=== PATIENT | male | born 1945 | race Caucasian/White ===

== ENCOUNTER → 2023-10-03 07:43 | Outpatient (CLI) | payer MEDICARE, SELFPAY ==
--- NOTE | 2023-10-03 07:45 | DI.RAD.S_ITS ---
PROCEDURE: XR CHEST 2V INDICATIONS: Cough TECHNIQUE: 2 views of the chest were acquired. COMPARISON: None. FINDINGS: Surgical changes and devices: None. Lungs and pleura: Lungs are clear. No pleural effusions or pneumothorax. Mediastinum: Mediastinal contours are normal except for a large hiatal hernia behind the heart containing air-fluid level. Heart size is normal. Bones and chest wall: No suspicious bony abnormalities. Soft tissues appear unremarkable. IMPRESSION: No acute cardiopulmonary abnormality is seen. Large hiatal hernia behind the heart, containing air-fluid level. This can predispose to reflux and recurrent aspiration. Please correlate clinically. Dictated by: Danis Santiago M.D. on 10/03/2023 at 10:12 Approved by: Danis Santiago M.D. on 10/03/2023 at 10:12
== END ==
PROVIDERS: Referring Provider Nurse Practitioner Family; Visit Provider Nurse Practitioner Family
DX: K44.9 Diaphragmatic hernia without obstruction or gangrene (principal); R05.9 Cough, unspecified
CPT/HCPCS: 71046

== ENCOUNTER 2024-03-31 11:30 | Emergency (ER) | payer MEDICARE, SELFPAY ==
[2024-03-31] VITALS (14 sets, daily range): BP systolic 110–163; BP diastolic 78–90; PULSE 64–79; RESP 16–33; TEMP 36.3–36.8; O2SAT 90–98; BMI 27.1
--- NOTE | 2024-03-31 11:57 | DI.CT.S_ITS ---
PROCEDURE: CT HEAD/BRAIN WO CON INDICATIONS: vertigo since last wed, vision changes, sent by optho TECHNIQUE: Noncontrast 4.5 mm thick angled axial sections acquired from the foramen magnum to the vertex, with coronal and sagittal reformats. For radiation dose reduction, the following was used: automated exposure control, adjustment of mA and/or kV according to patient size. COMPARISON: [facility], CT, CT ANGIO HEAD AND NECK, 03/31/2024, 12:15. FINDINGS: Image quality: Diagnostic. CSF spaces: Basal cisterns are patent. No extra-axial fluid collections. The ventricles are symmetric in size and shape. Brain: No intracranial bleeds or masses. There is cerebral volume loss for age, with resultant ventricular and sulcal prominence. There are periventricular and deep white matter chronic small vessel ischemic changes. There is intracranial internal carotid artery atherosclerosis. Skull and face: Calvarium and visualized facial bones appear intact, without suspicious lesions. Sinuses: Visualized sinuses and mastoids are clear. IMPRESSION: No acute intracranial pathology. Comment: If clinically suspect acute stroke, recommend brain MRI. Dictated by: Wild Tillman M.D. on 03/31/2024 at 12:38 Approved by: Wild Tillman M.D. on 03/31/2024 at 12:39
--- NOTE | 2024-03-31 11:57 | DI.CT.S_ITS ---
PROCEDURE: CT ANGIO HEAD AND NECK INDICATIONS: vertigo since last wed, vision changes, sent by optho TECHNIQUE: After the administration of intravenous contrast, 1 mm thick sections acquired from the aortic arch through the [place] of [place]. 3-dimensional icjugpv-ywldgouoo-akxbnwkexn (MIP) and/or volume rendering reformats were acquired of the central intracranial vasculature and neck separately. For radiation dose reduction, the following was used: automated exposure control, adjustment of mA and/or kV according to patient size. COMPARISON: [facility], CT, CT HEAD/BRAIN WO CON, 03/31/2024, 12:15. FINDINGS: Image quality: Diagnostic. BRAIN: CSF spaces: Ventricles are normal in size and shape. Basal cisterns are patent. No extra-axial fluid collections. Brain: No significant abnormality of the brain can be seen. Skull and face: Calvarium and facial bones appear intact, without suspicious lesions. Orbits appear normal. Sinuses: Sinuses and mastoids are clear. HEAD CT ANGIOGRAPHY: Anterior circulation: Intracranial internal carotid arteries are normal in size and flow. The flow within the paired anterior cerebral arteries is normal and symmetric. The flow within the middle cerebral arteries is normal and symmetric. The anterior communicating artery is seen. No aneurysms are seen. Posterior circulation: Visualized portions of the vertebral arteries demonstrate normal caliber, and join to form a normal appearing basilar artery. Flow within the posterior cerebral arteries is normal and symmetric. No aneurysms are seen. NECK CT ANGIOGRAPHY: Carotid system: The great vessels demonstrate a conventional anatomy as they arise from the aortic arch. At its origin, there is a xzan-te-rgrjuayi stenosis--less than or equal to 50%-- of the left common carotid artery secondary to soft plaque. This is best appreciated on axial image 325 of series 3. Brachiocephalic artery is widely patent. The left subclavian has a mild origin stenosis. The common carotid arteries otherwise demonstrate normal caliber and courses. The bifurcation regions are both widely patent. The internal carotid arteries demonstrate normal calibers and courses. Posterior circulation: The origins of the vertebral arteries both appear widely patent. The more superior extracranial portions of both vertebral arteries also demonstrate normal courses and calibers. They join to form a normal appearing basilar artery. Soft tissues: Visualized neck soft tissues demonstrate no suspicious abnormalities. Bones: No suspicious bony lesions. Visualized cervical spine appears normally aligned. IMPRESSION: No significant intracranial arterial abnormality is seen. No carotid or vertebral artery dissection. 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 Any quantitative measurements of stenosis were performed using NASCET criteria. Dictated by: Wild Tillman M.D. on 03/31/2024 at 12:32 Approved by: Wild Tillman M.D. on 03/31/2024 at 12:38
--- NOTE | 2024-03-31 11:58 | PC.NURSE ---
pt reports that he was sent to ER for evaluation of stroke. Says that he did some exercises for vertigo and it improved slightly.
--- NOTE | 2024-03-31 12:12 | EKG_ITS ---
[address] [address] Test Date: 2024-03-31 Pat Name: Brennan Salinas Department: [facility] Room: Gender: Male [employer]: ANA : 1945 Requested By: Order Number: [id number] Reading MD: Dimitris Mancia Measurements Intervals [place] Rate: 69 P: 20 FL: 208 QRS: -28 QRSD: 102 T: 24 QT: 398 QTc: 426 Interpretive Statements Normal sinus rhythm Inferior infarct , age undetermined Electronically Signed On 04-02-2024 23:44:22 PST by Dimitris Mancia
[2024-03-31 12:16] LABS: Add Manual Diff / Slide Review NO; Basophils Absolute Auto 100 /uL (0-100); Basophils Percent Auto 1.1 % (0-2); Eosinophils Absolute Auto 100 /uL (0-450); Eosinophils Percent Auto 1.9 % (2-4); Hematocrit 44.9 % (41-53); Hemoglobin 15.3 g/dL (13.5-17.5); Lymphocytes Absolute Auto 1100 /uL (1100-4500); Lymphocytes Percent Auto 19.1 % (25-40); Mean Corpuscular Hemoglobin 29.6 PG (26-34); Monocytes Absolute Auto 400 /uL (0-900); Monocytes Percent Auto 7.8 % (3-14); Neutrophils Absolute Auto 4100 /uL (1500-7000); Neutrophils Percent Auto 70.1 % (50-75); Platelet Count 281 X10^3/uL (150-400); Red Blood Cell Count 5.16 X10^6/uL (4.5-5.9); Red Cell Distribution Width 12.7 % (11.6-14.8); White Blood Cell Count 5.8 X10^3/uL (4.5-11.0)
[2024-03-31 12:21] LABS: INR 1.1 (0.9-1.3); Prothrombin Time 12.9 SECONDS (9.4-12.5)
[2024-03-31 12:23] LABS: PTT Partial Thromboplastin Tim 35 SECONDS (25.1-36.5)
[2024-03-31 12:23] LABS: Ur Creatinine Normal (Normal); Ur Specific Gravity Normal (Normal); Urine pH Normal (Normal)
[2024-03-31 12:24] LABS: Urine Amphetamines Negative (Negative); Urine Barbiturates Negative (Negative); Urine Benzodiazepines Negative (Negative); Urine Cocaine Negative (Negative); Urine MDMA Negative (Negative); Urine Methadone Negative (Negative); Urine Methamphetamines Negative (Negative); Urine Opiates Negative (Negative); Urine Oxycodone Negative (Negative); Urine Phencyclidine Negative (Negative); Urine THC Negative (Negative); Urine Tricyclic Antidepressant Negative (Negative)
[2024-03-31 12:28] LABS: Alanine Aminotransferase 26 IU/L (<50); Albumin 4.1 g/dL (3.5-5.0); Albumin Globulin Ratio 1.4 (1.0-2.8); Alkaline Phosphatase 73 U/L (38-126); Aspartate Aminotransferase 29 IU/L (17-59); BUN Creatinine Ratio 23.1 (6-22); Bilirubin Total 0.6 mg/dL (0.2-1.3); Blood Urea Nitrogen 21 mg/dL (9-20); Calcium 8.8 mg/dL (8.4-10.2); Carbon Dioxide 23 mmol/L (22-32); Chloride 108 mmol/L (98-107); Estimated Glomerular Filt Rate > 60 mL/min (>60); Ethanol (ETOH) < 10 mg/dL; Globulin 2.9 g/dL (1.7-4.1); Glucose 99 mg/dL (80-110); HEMOLYSIS 18 (0-50); Potassium 4.2 mmol/L (3.4-5.1); Sodium 136 mmol/L (137-145)
--- NOTE | 2024-03-31 14:34 | ED.NEUROSD ---
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 Patient states Sunday he had a great curtain, over his eye. States he saw the community specialist today who told him they did not find any major changes to his eye he was had a similar episode of amaurosis fugax about 2 years ago which prompted his physician to start him on a statin. Patient states he talked with his primary care today or got a call back based on his symptoms they told him to come to the ER to be evaluated for stroke. He has not had any persistent vision changes, no headache, no speech changes no facial droop, new numbness, tingling or weakness no movement of his extremities. Patient denies any nausea or vomiting. No issues with bowel movements no urinary issues. Patient states statins is only daily medications was recommended to take an aspirin daily by his physician but does not. Has had bilateral knee surgery. No known drug allergies. No tobacco, occasional alcohol, no recreational drugs. Patient notes he was pretty active engaged in a lot of sports including skiing, hiking and exercises regularly. On Anticoagulants: No Related Data Home Medications Medication Instructions Recorded Confirmed rosuvastatin 5 mg tablet 5 mg PO DAILY 10/03/23 10/03/23 Previous Rx's Medication Instructions Recorded meclizine 25 mg tablet 25 mg PO BID PRN dizziness #20 tabs 03/27/24 Allergies Allergy/AdvReac Type Severity Reaction Status Date / Time No Known Drug Allergies Allergy Unverified 03/27/24 15:14 Review of Systems Review of Systems ROS Unobtainable: All systems reviewed & are unremarkable except as noted in HPI and below Hematologic/Lymphatic On Anticoagulants: No Patient History Social History Smoking Status: Never smoker Smoking Status: Never smoker Exam Narrative Exam Narrative: GEN: well nourished, well appearing male, alert and oriented x 3, patient appears to be in mild distress. HEENT: Atraumatic, pupils are dilated, round patient did have a dilated eye exam earlier today, extraocular movements are intact, nares are clear, TMs are clear with no fluid, there is no conjunctival pallor. Throat is clear without any exudates, erythema, tonsillar enlargement or uvular deviation, no facial droop HEART: Regular rate and rhythm without murmur, clicks, rubs. LUNGS:Lungs clear to auscultation, no wheezes, rales, crackles, chest moves symmetrically ABD:bowel sounds normal, soft, non-tender, no guarding, rebound, rigidity, no masses noted, no hepatosplenomegaly MSCL: Non-tender, no muscle atrophy, muscles strength 5/5 upper and lower extremities, full range of motion, normal gait NEURO:CN 2-12 intact, sensation normal, finger nose finger test normal, heel garcia test normal Initial Vital Signs Initial Vital Signs: Vital Signs Pulse Rate 74 03/31/24 11:41 Pulse Oximetry 96 03/31/24 11:41 Scores NIH Stroke Scale Level of Conciousness: Alert, keenly responsive Ask month/age: Answers both questions correctly. Open/close eyes, close hand: Performs both tasks correctly Best gaze horizontal: Normal Visual oquendo: No visual loss Facial palsy: Normal symetrical movement Left arm drift: No drift for full 10 sec Right arm drift: No drift for full 10 sec Left leg drift: No drift for full 5 sec Right leg drift: No drift for full 5 sec Limb ataxia: Absent Sensory on face/arms/legs: Normal, no sensory loss Best language: No aphasia, normal Dysarthria: Normal Extinction or inattention: No abnormality Total NIH Stroke scale score: 0 Course Orders Ordered: ED Orders 03/31/24 11:57 CT angio head and neck Stat CT head/brain wo con Stat EKG-12 Lead Stat 03/31/24 12:05 Complete Blood Count AUTO DIFF Stat Comprehensive Metabolic Panel Stat Ethanol (ETOH) Stat PTT Partial Thromboplastin Tony Stat Prothrombin Time INR Stat 03/31/24 12:10 Urine Drug Screen, Rapid Stat 03/31/24 15:04 MR head/brain wo con Stat Discontinued Medications Aspirin (Aspirin 81 Mg Chew Tab) 324 mg PO NOW ONE Stop: 03/31/24 15:02 Last Admin: 03/31/24 15:42 Dose: 324 mg Documented By: Vital Signs Vital signs: Vital Signs - 8 hr 03/31/24 11:41 03/31/24 11:44 03/31/24 11:46 Temperature 97.6 F 97.4 F L Pulse Rate 74 79 65 Respiratory Rate 18 18 Blood Pressure 163/87 H 145/78 H Pulse Oximetry 96 98 98 Oxygen Delivery Method Room Air Room Air 03/31/24 12:00 03/31/24 12:00 03/31/24 12:24 Temperature Pulse Rate 64 Respiratory Rate Blood Pressure 115/79 147/83 H Pulse Oximetry 93 Oxygen Delivery Method 03/31/24 12:24 03/31/24 12:30 03/31/24 12:30 Temperature Pulse Rate 67 67 Respiratory Rate 25 H 22 Blood Pressure 122/80 Pulse Oximetry 96 96 Oxygen Delivery Method Room Air 03/31/24 13:00 03/31/24 13:00 03/31/24 13:30 Temperature Pulse Rate 68 Respiratory Rate 24 Blood Pressure 123/84 118/78 Pulse Oximetry 96 Oxygen Delivery Method 03/31/24 13:30 03/31/24 14:00 03/31/24 14:01 Temperature Pulse Rate 66 67 67 Respiratory Rate 20 17 20 Blood Pressure Pulse Oximetry 95 96 96 Oxygen Delivery Method Room Air 03/31/24 14:01 03/31/24 14:30 03/31/24 14:30 Temperature Pulse Rate 66 Respiratory Rate 23 Blood Pressure 110/81 120/80 Pulse Oximetry 96 Oxygen Delivery Method 03/31/24 15:39 03/31/24 15:40 03/31/24 15:40 Temperature Pulse Rate 72 71 Respiratory Rate 33 H Blood Pressure 128/90 Pulse Oximetry 90 L 95 Oxygen Delivery Method 03/31/24 16:08 Temperature 98.2 F Pulse Rate 66 Respiratory Rate 16 Blood Pressure 115/78 Pulse Oximetry 98 Oxygen Delivery Method Room Air MDM - Neuro Symptoms/Deficit Lab Data 03/31/24 12:05 03/31/24 12:05 Labs: Lab Results 03/31/24 03/31/24 Range/Units 12:05 12:10 WBC 5.8 (4.5-11.0) X10^3/uL RBC 5.16 (4.5-5.9) X10^6/uL Hgb 15.3 (13.5-17.5) g/dL Hct 44.9 (41-53) % MCV 87.0 (80-100) fL MCH 29.6 (26-34) PG MCHC 34.0 (30-36) % RDW 12.7 (11.6-14.8) % Plt Count 281 (150-400) X10^3/uL Neut % (Auto) 70.1 (50-75) % Lymph % (Auto) 19.1 L (25-40) % [place] % (Auto) 7.8 (3-14) % Eos % (Auto) 1.9 L (2-4) % Baso % (Auto) 1.1 (0-2) % Neut # (Auto) 4100 (4281-5373) /uL Lymph # (Auto) 1100 (9215-5880) /uL [place] # (Auto) 400 (0-900) /uL Eos # (Auto) 100 (0-450) /uL Baso # (Auto) 100 (0-100) /uL PT 12.9 H (9.4-12.5) SECONDS INR 1.1 (0.9-1.3) APTT 35 (25.1-36.5) SECONDS Sodium 136 L (137-145) mmol/L Potassium 4.2 (3.4-5.1) mmol/L Chloride 108 H (98-107) mmol/L Carbon Dioxide 23 (22-32) mmol/L BUN 21 H (9-20) mg/dL Creatinine 0.91 (0.66-1.25) mg/dL Estimated GFR > 60 (>60) mL/min BUN/Creatinine Ratio 23.1 H (6-22) Glucose 99 (80-110) mg/dL Calcium 8.8 (8.4-10.2) mg/dL Total Bilirubin 0.6 (0.2-1.3) mg/dL AST 29 (17-59) IU/L ALT 26 (<50) IU/L Alkaline Phosphatase 73 (38-126) U/L Total Protein 7.0 (6.3-8.2) g/dL Albumin 4.1 (3.5-5.0) g/dL Globulin 2.9 (1.7-4.1) g/dL Albumin/Globulin Ratio 1.4 (1.0-2.8) U Opiates 300ng/mL cut Negative (Negative) Ur Oxycodone Screen Negative (Negative) Urine Methadone Screen Negative (Negative) Ur Barbiturates Screen Negative (Negative) U Tricyclic Antidepress Negative (Negative) Ur Phencyclidine Scrn Negative (Negative) Ur Amphetamines Screen Negative (Negative) U Methamphetamines Scrn Negative (Negative) Ur MDMA Scrn (Ecstasy) Negative (Negative) U Benzodiazepines Scrn Negative (Negative) Urine Cocaine Screen Negative (Negative) U Marijuana (THC) Screen Negative (Negative) Urine pH Normal (Normal) Urine Specific [place] Normal (Normal) Ethyl Alcohol < 10 ( - 10) mg/dL Ur Creatinine Normal (Normal) Imaging Data CT scan - head: Radiologist's Impression: Close Head/Neck CTA (Signed) Wild Tillman - 03/31/[address] (Signed) Wild Tillman - 03/31/24 Chest X-Ray (Signed) Danis Santiago - 10/03/23 Launch?[place] [address] CT Scan Report Signed Patient: Brennan Salinas MR#: [id number] : 1945 Acct:[id number] Age/Sex: 78 / M Date of Service: 03/31/24 Loc: ED Accession Number: [id number] Procedure: CT head/brain wo con Ordering Provider: Rita Rudolph D.O. PROCEDURE: CT HEAD/BRAIN WO CON INDICATIONS: vertigo since last sun, vision changes, sent by optho TECHNIQUE: Noncontrast 4.5 mm thick angled axial sections acquired from the foramen magnum to the vertex, with coronal and sagittal reformats. For radiation dose reduction, the following was used: automated exposure control, adjustment of mA and/or kV according to patient size. COMPARISON: [facility], CT, CT ANGIO HEAD AND NECK, 03/31/2024, 12:15. FINDINGS: Image quality: Diagnostic. CSF spaces: Basal cisterns are patent. No extra-axial fluid collections. The ventricles are symmetric in size and shape. Brain: No intracranial bleeds or masses. There is cerebral volume loss for age, with resultant ventricular and sulcal prominence. There are periventricular and deep white matter chronic small vessel ischemic changes. There is intracranial internal carotid artery atherosclerosis. Skull and face: Calvarium and visualized facial bones appear intact, without suspicious lesions. Sinuses: Visualized sinuses and mastoids are clear. IMPRESSION: No acute intracranial pathology. Comment: If clinically suspect acute stroke, recommend brain MRI. Dictated by: Wild Tillman M.D. on 03/31/2024 at 12:38 Approved by: Wild Tillman M.D. on 03/31/2024 at 12:39 CTA - brain/neck: Radiologist's Impression: Brennan Salinas??78??M??1945 ? Allergy/Adv: No Known Drug Allergies Close Head/Neck CTA (Signed) Wild Tillman - 03/31/[address] (Signed) Wild Tillman - 03/31/24 Chest X-Ray (Signed) Danis Santiago - 10/03/23 [facility]?[place] [address] CT Scan Report Signed Patient: Brennan Salinas MR#: [id number] : 1945 Acct:[id number] Age/Sex: 78 / M Date of Service: 03/31/24 Loc: ED Accession Number: [id number] Procedure: CT angio head and neck Ordering Provider: Rita Rudolph D.O. PROCEDURE: CT ANGIO HEAD AND NECK INDICATIONS: vertigo since last sun, vision changes, sent by optho TECHNIQUE: After the administration of intravenous contrast, 1 mm thick sections acquired from the aortic arch through the [place] of [place]. 3-dimensional aymuger-izdryzazi-zbdbdnhvgi (MIP) and/or volume rendering reformats were acquired of the central intracranial vasculature and neck separately. For radiation dose reduction, the following was used: automated exposure control, adjustment of mA and/or kV according to patient size. COMPARISON: [facility], CT, CT HEAD/BRAIN WO CON, 03/31/2024, 12:15. FINDINGS: Image quality: Diagnostic. BRAIN: CSF spaces: Ventricles are normal in size and shape. Basal cisterns are patent. No extra-axial fluid collections. Brain: No significant abnormality of the brain can be seen. Skull and face: Calvarium and facial bones appear intact, without suspicious lesions. Orbits appear normal. Sinuses: Sinuses and mastoids are clear. HEAD CT ANGIOGRAPHY: Anterior circulation: Intracranial internal carotid arteries are normal in size and flow. The flow within the paired anterior cerebral arteries is normal and symmetric. The flow within the middle cerebral arteries is normal and symmetric. The anterior communicating artery is seen. No aneurysms are seen. Posterior circulation: Visualized portions of the vertebral arteries demonstrate normal caliber, and join to form a normal appearing basilar artery. Flow within the posterior cerebral arteries is normal and symmetric. No aneurysms are seen. NECK CT ANGIOGRAPHY: Carotid system: The great vessels demonstrate a conventional anatomy as they arise from the aortic arch. At its origin, there is a htys-rz-gtixoxow stenosis--less than or equal to 50%-- of the left common carotid artery secondary to soft plaque. This is best appreciated on axial image 325 of series 3. Brachiocephalic artery is widely patent. The left subclavian has a mild origin stenosis. The common carotid arteries otherwise demonstrate normal caliber and courses. The bifurcation regions are both widely patent. The internal carotid arteries demonstrate normal calibers and courses. Posterior circulation: The origins of the vertebral arteries both appear widely patent. The more superior extracranial portions of both vertebral arteries also demonstrate normal courses and calibers. They join to form a normal appearing basilar artery. Soft tissues: Visualized neck soft tissues demonstrate no suspicious abnormalities. Bones: No suspicious bony lesions. Visualized cervical spine appears normally aligned. IMPRESSION: No significant intracranial arterial abnormality is seen. No carotid or vertebral artery dissection. 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 Any quantitative measurements of stenosis were performed using NASCET criteria. Dictated by: Wild Tillman M.D. on 03/31/2024 at 12:32 Approved by: Wild Tillman M.D. on 03/31/2024 at 12:38 mr brain: Radiologist's Impression: [address] [address] Magnetic Resonance Report Signed Patient: Brennan Salinas MR#: [id number] : 1945 Acct:[id number] Age/Sex: 78 / M Date of Service: 03/31/24 Loc: ED Accession Number: [id number] Procedure: MR head/brain wo con Ordering Provider: Rita Rudolph D.O. PROCEDURE: MR HEAD/BRAIN WO CON INDICATIONS: vertigo in last week, amaurosis fugax eye sat. TECHNIQUE: Non-contrast axial T1 spin echo, axial T2 fast spin echo, sagittal and axial FLAIR, coronal T2 fast spin echo, axial gradient echo, axial diffusion and ADC through the brain. COMPARISON: [facility], CT, CT ANGIO HEAD AND NECK, 03/31/2024, 12:15. FINDINGS: Image quality: Excellent. CSF spaces: Ventricles appear symmetric in size and shape. Basal cisterns are patent. No extra-axial fluid collections. Brain: No intracranial bleeds or mass effects. There is cerebral volume loss for age. There are periventricular and deep white matter chronic small vessel ischemic changes. Brainstem appears normal. Diffusion-weighted images show no acute infarct. No chronic ischemic insults. Normal intravascular flow voids are present. Skull and face: Calvarial bone marrow is normal in signal. Orbits are normal. Sinuses: Sinuses and mastoids are clear. IMPRESSION: No acute intracranial pathology. Approved by: Rohith Ng M.D. on 03/31/2024 at 15:32 ECG Data Attestation: I personally reviewed and interpreted this ECG as follows: Interpretation: Normal sinus rhythm rate of 69 CA 208 QRS of 102 QTC of 426, no acute ST elevation depression noted. [facility] Narrative Medical decision making narrative: 78-year-old male presents with complaint of vertigo that has been persistent been taking meclizine has been doing vertigo exercises and had moderate improvement also noted to have vision change was seen by ophthalmology was told to come to the ER for evaluation for stroke. Symptoms are outside 24 hours patient would not be a tPA or code IR candidate. NIH is 0. Head CT non-con shows no acute intracranial pathology. CTA head and neck shows no significant intracranial arterial abnormality no carotid or vertebral artery dissection xqnj-ss-lmjywwxn stenosis origin left common carotid artery secondary to soft plaque less than or 50% EKG shows sinus rhythm rate of 69 Shows CBC with a white count of 5.8 hemoglobin of 15 platelets of 281, coags are negative sodium is 136 potassium is 4.2 chloride 108 CO2 is 23 BUN 21 creatinine 0.9 glucose is 99 LFTs are negative. ETOH is negative UDS is negative MR brain is negative for cva. Discussed with patient he has had 2 different potential TIA or stroke-like symptoms with what sounds like amaurosis fugax did have an episode 2 years ago of his eye but also had vertigo that started last Sunday most persistently did have a few episodes the Sunday before that. He was outside the window for stroke initial workup shows less than 50% stenosis left ICA but no other major changes discussed with the patient I do think he would benefit from MR to rule out stroke although it is conceivable but these could be 2 separate issues. Discussed with patient he was agreeable, notes that if MRIs not available before 5:00 p.m. he will have to leave. MR brain was ordered and obtained. Patient is currently on a statin would have him follow up for additional workup for potential TIA with vision changes but with persistent vertigo symptoms I do not feel that is a source of his vertigo with a negative MR. Discussed with patient would recommend that he takes an aspirin daily. Printed off patient's labs and imaging to share with his primary care they can adjust medications as needed and pursue further workup. Patient was fairly active dusky regularly discussed and aspirin is technically an anticoagulants he was any significant head injuries. Patient feels comfortable with the plan. Stroke Core Measures Exclusion Criteria TPA in CVA: Symptom Onset >3 or 4.5 Hours Discharge Plan Departure Patient Disposition: Home Clinical Impression: Vertigo Instructions: DI for Vertigo Activity Restrictions/Additional Instructions: Follow up with your physician for recheck, your labs today are overall appropriate copies included in your paperwork. Your MRI brain without contrast does not show any acute change or stroke. Your CT angio of your head and neck does show less than or equal to 50% htjf-tv-axlihhrx stenosis of the origin of the left common carotid artery secondary to soft plaque. Share this information with your physician. Continue with the an aspirin 81 mg daily and I would recommend continuing a statin. Your doctor may wish to adjust your medication dosage. Please return if you have recurrent changes, new or persistent vision changes, severe headaches, numbness, tingling or weakness difficulty with speech or movement, facial droop, difficulty with ambulation, persistent vomiting or other new or concerning changes. Prescriptions: No Action meclizine 25 mg tablet 25 mg PO BID PRN (Reason: dizziness) Qty: 20 0RF rosuvastatin 5 mg tablet 5 mg PO DAILY Referrals: Miscellaneous,DoctorMD [Primary Care Provider] - Stand Alone Forms: Patient Portal/API/Survey
--- NOTE | 2024-03-31 15:04 | DI.MRI.S_ITS ---
PROCEDURE: MR HEAD/BRAIN WO CON INDICATIONS: vertigo in last week, amaurosis fugax eye sat. TECHNIQUE: Non-contrast axial T1 spin echo, axial T2 fast spin echo, sagittal and axial FLAIR, coronal T2 fast spin echo, axial gradient echo, axial diffusion and ADC through the brain. COMPARISON: [facility], CT, CT ANGIO HEAD AND NECK, 03/31/2024, 12:15. FINDINGS: Image quality: Excellent. CSF spaces: Ventricles appear symmetric in size and shape. Basal cisterns are patent. No extra-axial fluid collections. Brain: No intracranial bleeds or mass effects. There is cerebral volume loss for age. There are periventricular and deep white matter chronic small vessel ischemic changes. Brainstem appears normal. Diffusion-weighted images show no acute infarct. No chronic ischemic insults. Normal intravascular flow voids are present. Skull and face: Calvarial bone marrow is normal in signal. Orbits are normal. Sinuses: Sinuses and mastoids are clear. IMPRESSION: No acute intracranial pathology. Approved by: Rohith Ng M.D. on 03/31/2024 at 15:32
--- NOTE | 2024-03-31 15:04 | PC.NURSE ---
Patient left this department with DI tech to go to MRI in stretcher with bilateral rails up.
[2024-03-31] MEDS: ASPIRIN 81 MG CHEW TAB 324 MG PO (15:42)
== END 2024-03-31 16:09 | disposition home or self-care (01) ==
PROVIDERS: Emergency Provider Emergency Medicine
DX: R42 Dizziness and giddiness (principal); H53.9 Unspecified visual disturbance; G45.3 Amaurosis fugax
CPT/HCPCS: 36415; 70450; 70496; 70498; 70551; 80053; 80305; 80320; 85025; 85610; 85730; 93005; 99284; Q9967

== ENCOUNTER 2024-11-08 09:35 | Emergency (ER) | payer MEDICARE, SELFPAY ==
[2024-11-08 09:40] VITALS: BP 172/90; PULSE 67; RESP 16; TEMP 36.6; O2SAT 96; BMI 27.2
[2024-11-08 09:46] VITALS: BP 138/77; PULSE 75; O2SAT 96
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
[2024-11-08 10:00] VITALS: BP 134/73; PULSE 67; RESP 18; O2SAT 93
[2024-11-08 10:30] VITALS: PULSE 63; O2SAT 94
[2024-11-08] MEDS: IBUPROFEN 400 MG TABLET PO (10:41)
[2024-11-08 11:00] VITALS: PULSE 62; O2SAT 94
[2024-11-08 11:12] VITALS: BP 136/74
== END 2024-11-08 11:13 | disposition home or self-care (01) ==
PROVIDERS: Emergency Provider Family Medicine
DX: S22.31XA Fracture of one rib, right side, initial encounter for closed fracture (principal); V19.9XXA Pedal cyclist (driver) (passenger) injured in unspecified traffic accident, initial encounter
CPT/HCPCS: 71046; 99283